=== PATIENT | male | born 1985 | race African-American/Black ===

== ENCOUNTER 2022-10-03 12:54 | Emergency (ER) | payer SELFPAY ==
[2022-10-03 14:44] LABS: SARS-CoV-2 NAA Rapid Test DETECTED (NotDetected)
== END 2022-10-03 15:56 | disposition home or self-care (01) ==
LOC: CSHERS 12:54
DX: U07.1 COVID-19 (principal); F17.210 Nicotine dependence, cigarettes, uncomplicated
CPT/HCPCS: 99283; U0002